=== PATIENT | female | born 1955 | race African-American/Black ===

== ENCOUNTER 2016-11-13 18:18 | Emergency (ER) | payer OTHER ==
[~2016-11-13 18:18] MED LIST: ALEVE220 MG PO; BUSPAR5 PO; FLEX PO; FLEXERIL5 MG PO; GLUCOPHAGE1000 MG PO; INDO50 PO; IRON OTC PO; LISINOPRIL40 MG PO; NORV5 PO; P20 PO; PR12.5 PO; PRIN20 PO; PROTONIX PO; PROVHFA INH; ULTRAM50 PO
== END 2016-11-13 19:03 | disposition home or self-care (01) ==
LOC: ER 18:18
DX: S46.212A Strain of muscle, fascia and tendon of other parts of biceps, left arm, initial encounter (principal); I10 Essential (primary) hypertension; E11.9 Type 2 diabetes mellitus without complications; F17.200 Nicotine dependence, unspecified, uncomplicated; Z88.5 Allergy status to narcotic agent; Z79.82 Long term (current) use of aspirin; Z79.84 Long term (current) use of oral hypoglycemic drugs; Z79.899 Other long term (current) drug therapy; X58.XXXA Exposure to other specified factors, initial encounter
CPT/HCPCS: 73060-LT; 93005; 99283; A9270-GY